=== PATIENT | male | born 1995 | race Caucasian/White ===

== ENCOUNTER 2017-10-29 11:54 | Inpatient (IN) | payer OTHER ==
[2017-10-29 13:11] VITALS: BMI 24.3
--- NOTE | 2017-10-29 13:15 | HP ---
COWS - Scale Resting Pulse: 1= OR 81-100 Sweatin= Chills/Flushing Restless Observation: 1= Difficult to Sit Still Pupil Size: 0= Normal to Room Light Bone or Joint Aches: 1= Mild Discomfort Runny Nose/ Eye Tearin= Runny Nose/Eyes Tremor Observation: 1= Tremor Sherrill, Not Seen Yawning Observation: 1= 1-2x During Session Anxiety or Irritability: 1=Feels Anxious/Irritable Goose Flesh Skin: 0=Smooth Skin Admission ROS [facility] - HPI Chief Complaint: I want help to stop, I want to be a better person, I love my family and I don't want to disappoint my family any more Allergies/Adverse Reactions: Allergies Allergy/AdvReac Type Severity Reaction Status Date / Time amoxicillin Allergy Intermediate Hives Verified 10/29/17 12:53 History of Present Illness: 22 yo gentleman here for detox from heroin and xanax. Denies drinking etoh, no cocaine (urine tox + cocaine - patient thinks cut into heroin). Noted methadone in urine tox - states from his brief stay in detox. States he tried detox a few days ago but only lasted a few hours ("I got scared but I have to do it") and in rehab last year but relapsed. No seizures, no overdoses. Exam Limitations: Clinical Condition - Ebola screening Have you traveled outside of the country in the last 21 days: No Have you had contact with anyone from an Ebola affected area: No Have you been sick,other than usual withdrawal symptoms: No Do you have a fever: No - Review of Systems Constitutional: Loss of Appetite, Malaise, Changes in sleep EENT: reports: Nose Congestion Respiratory: reports: No Symptoms reported Cardiac: reports: No Symptoms Reported GI: reports: Nausea, Poor Appetite, Abdominal cramping : reports: No Symptoms Reported Musculoskeletal: reports: Back Pain, Muscle Pain Integumentary: reports: Dryness Neuro: reports: Headache Endocrine: reports: No Symptoms Reported Hematology: reports: No Symptoms Reported Psychiatric: reports: Judgement Intact, Mood/Affect Appropiate, Orientated x3, Anxious Other Systems: Reviewed and Negative Patient History - Patient Medical History Hx Asthma: No Hx Chronic Obstructive Pulmonary Disease (COPD): No Hx Cancer: No Hx Cardiac Disorders: No Hx Congestive Heart Failure: No Hx Hypertension: No Hx Pacemaker: No Hx Seizures: No Hx Diabetes: No Hx Gastrointestinal Disorders: No Hx Liver Disease: No Hx Genitourinary Disorders: No Hx Sexually Transmitted Disorders: No Hx Renal Disease (ESRD): No Hx Thyroid Disease: No Hx Human Immunodeficiency Virus (HIV): No Hx Hepatitis C: No Hx Depression: Yes (anxiety) Hx Suicide Attempt: No Hx Bipolar Disorder: No Hx Schizophrenia: No - Patient Surgical History Past Surgical History: No Hx Neurologic Surgery: No Hx Cataract Extraction: No Hx Cardiac Surgery: No Hx Lung Surgery: No Hx Breast Surgery: No Hx Breast Biopsy: No Hx Abdominal Surgery: No Hx Appendectomy: No Hx Cholecystectomy: No Hx Genitourinary Surgery: No Hx Section: No Hx Orthopedic Surgery: No Anesthesia Reaction: No - PPD History Previous Implant?: Yes Documented Results: Negative w/o proof Implanted On Prior [facility] Admission?: Yes - Reproductive History Patient is a Female of Child Bearing Age (11 -55 yrs old): No (male) - Smoking Cessation Smoking history: Current every day smoker Have you smoked in the past 12 months: Yes Aproximately how many cigarettes per day: 40 Hx Chewing Tobacco Use: No Initiated information on smoking cessation: Yes 'Breaking Loose' booklet given: 10/29/17 (give n floor) - Substance & Tx. History Hx Alcohol Use: No Hx Substance Use: Yes Substance Use Type: Heroin, Marijuana, Tranquilizers Hx Substance Use Treatment: Yes (rehab) - Substances Abused Alprazolam (Xanax) Route: Oral Frequency: 3-6 times per week Amount used: 4MG Age of first use: 20 Date of Last Use: 10/27/17 Heroin Route: Inhalation Frequency: Daily Amount used: 15 BAGS Age of first use: 22 Date of Last Use: 10/29/17 Marijuana/Hashish Route: Smoking Frequency: Daily Amount used: $25 Age of first use: 14 Date of Last Use: 10/29/17 Family Disease History - Family Disease History Family Disease History: Other: Father (living - healthy), Mother (living, - healthy), Sister (one - living - healthy) Admission Physical Exam [facility] - Vital Signs Vital Signs: Vital Signs Period Temp Pulse Resp BP Sys/Osborne Pulse Ox Last 24 Hr 97.7 F 82 19 116/69 - Physical General Appearance: Yes: Nourished, Appropriately Dressed, Moderate Distress, Tremorous, Anxious HEENTM: Yes: EOMI, Hearing grossly Normal, Normocephalic, Normal Voice, Nasal Congestion Respiratory: Yes: Normal Breath Sounds, No Respiratory Distress Neck: Yes: No masses,lesions,Nodules, Supple Breast: Yes: Breast Exam Deferred Cardiology: Yes: Regular Rhythm, Regular Rate Abdominal: Yes: Non Tender, Flat Genitourinary: Yes: Hesitency Back: Yes: Normal Inspection Musculoskeletal: Yes: full range of Motion, Gait Steady Extremities: Yes: Normal Inspection, Normal Range of Motion, Non-Tender Neurological: Yes: Fully Oriented, Alert, Motor Strength 5/5, Normal Mood/Affect , Normal Response Integumentary: Yes: Normal Color, Warm Lymphatic: Yes: Within Normal Limits - Diagnostic (1) Opioid dependence with withdrawal Current Visit: Yes Status: Acute (2) Sedative, hypnotic or anxiolytic dependence with withdrawal, uncomplicated Current Visit: Yes Status: Chronic (3) Nicotine dependence unspecified, with withdrawal Current Visit: Yes Status: Chronic Qualifiers: Nicotine product type: cigarettes Qualified Code(s): F17.213 - Nicotine dependence, cigarettes, with withdrawal Cleared for Admission [facility] - Detox or Rehab [facility] Level of Care: Medically Managed Detox Regimen/Protocol: Methadone, Methadone/Valium
[2017-10-29] MEDS ORDERED: guaiFENesin/D-METHORPHAN HB 10 ML UNIT-DOSE CUPS PO PRN (13:21)
[2017-10-29] MEDS ORDERED: IBUPROFEN 400 MG TABLET (FP) PO PRN (13:21)
[2017-10-29] MEDS ORDERED: MENTHOL/PHENOL 1 EACH UD MM PRN (13:21)
[2017-10-29] MEDS ORDERED: diazePAM 5 MG TABLET PO PRN (13:21)
[2017-10-29] MEDS ORDERED: P-EPHED 60MG/TRIPROLIDI 2.5MG TABLET PO PRN (13:21)
[2017-10-29] MEDS ORDERED: ACETAMINOPHEN 325 MG TABLET (FP) PO PRN (13:21)
[2017-10-29] MEDS ORDERED: LOPERAMIDE HCL 2 MG CAPSULE PO PRN (13:21)
[2017-10-29] MEDS ORDERED: MAG HYDROX/AL HYDROX/SIMETH 30 ML UNIT-DOSE CUP PO PRN (13:21)
[2017-10-29] MEDS ORDERED: MAGNESIUM CITRATE 300 ML BOTTLE PO PRN (13:21)
[2017-10-29] MEDS ORDERED: MAGNESIUM HYDROX 2400MG/30ML ORAL SUSPENSION 30 ML CUP PO PRN (13:21)
[2017-10-29] MEDS ORDERED: hydrOXYzine PAMOATE 25 MG CAPSULE (FP) PO PRN (13:21)
[2017-10-29] MEDS ORDERED: NICOTINE 21 MG/24 HOURS TOPICAL PATCH TD SCH (13:30)
[2017-10-29] MEDS ORDERED: diazePAM 5 MG TABLET PO ONE (13:45)
[2017-10-29] MEDS ORDERED: METHADONE HCL 10 MG TABLET (FOR DETOX USE ONLY) PO ONE ×2 (13:45→23:00)
[2017-10-29] MEDS: NICOTINE POLACRILEX 4 MG GUM BUC PRN ×2 (14:24→19:52)
[2017-10-29] MEDS: diazePAM 5 MG TABLET PO SCH ×2 (14:31→22:10)
[2017-10-29] MEDS ORDERED: MELATONIN 5 MG TABLETS PO PRN (22:00)
[2017-10-29] MEDS ORDERED: THIAMINE HCL 100 MG TABLET (FP) PO SCH (22:00)
[2017-10-29 22:10] LABS: URINE APPEARANCE CLOUDY; URINE BILIRUBIN NEGATIVE (<2.0 mg/dL); URINE COLOR AMBER; URINE GLUCOSE (UA) NEGATIVE (NEGATIVE); URINE KETONE NEGATIVE (NEGATIVE); URINE LEUK ESTERASE NEGATIVE (NEGATIVE); URINE NITRITE NEGATIVE (NEGATIVE); URINE PROTEIN NEGATIVE (NEGATIVE); URINE UROBILINOGEN NEGATIVE mg/dL (0.2-1.0)
[2017-10-30] MEDS: diazePAM 5 MG TABLET PO SCH (05:19)
[2017-10-30 06:22] VITALS: BP 105/67; PULSE 50; TEMP 97
--- NOTE | 2017-10-30 06:37 | CONSULT ---
[facility] Psychiatric Consult - Data Date of interview: 10/30/17 Identifying data: Mr Carbajal is a 22 years old male seeking detox treatment for opioid, benzodiazepine and cannabis Substance Abuse History: Reports history of heroin, xanax and marijuana use. Refer to addiction counselor's summary for further information Medical History: Unremarkable. Smokes cigarettes 2 ppd Psychiatric Findings - Problem List ([place] 1, 2,3) (1) Opioid dependence with withdrawal Current Visit: Yes Status: Acute (2) Sedative, hypnotic or anxiolytic dependence with withdrawal, uncomplicated Current Visit: Yes Status: Acute (3) Cannabis dependence Current Visit: Yes Status: Acute (4) Nicotine dependence unspecified, with withdrawal Current Visit: Yes Status: Chronic Qualifiers: Nicotine product type: cigarettes Qualified Code(s): F17.213 - Nicotine dependence, cigarettes, with withdrawal
--- NOTE | 2017-10-30 08:50 | PN ---
S Progress Note Note: Vital Signs Temperature 97.0 F L 10/30/17 06:22 Pulse Rate 50 L 10/30/17 06:22 Respiratory Rate 18 10/30/17 06:22 Blood Pressure 105/67 10/30/17 06:22 O2 Sat by Pulse Oximetry (%) Patient left AMA, did not wait and walked off the unit.
--- NOTE | 2017-10-30 08:51 | DS ---
[facility] Detox Discharge Summary Admission Date: 10/29/17 Discharge Date: 10/30/17 - History Present History: Cannabis Dependence, Opioid Dependence, Sedative Dependence Additional Comments: Patient left AMA. If worsening symptoms are present patient to follow up with ED, urgent care or PMD. - Physical Exam Results Vital Signs: Vital Signs Temperature 97.0 F L 10/30/17 06:22 Pulse Rate 50 L 10/30/17 06:22 Respiratory Rate 18 10/30/17 06:22 Blood Pressure 105/67 10/30/17 06:22 O2 Sat by Pulse Oximetry (%) Pertinent Admission Physical Exam Findings: Vital Signs Temperature 97.0 F L 10/30/17 06:22 Pulse Rate 50 L 10/30/17 06:22 Respiratory Rate 18 10/30/17 06:22 Blood Pressure 105/67 10/30/17 06:22 O2 Sat by Pulse Oximetry (%) Laboratory Last Values Urine Color [place] 10/29/17 15:03 Urine Appearance Cloudy 10/29/17 15:03 Urine pH 6.0 (5.0-8.0) 10/29/17 15:03 Ur Specific [place] 1.021 (1.001-1.035) 10/29/17 15:03 Urine Protein Negative (NEGATIVE) 10/29/17 15:03 Urine Glucose (UA) Negative (NEGATIVE) 10/29/17 15:03 Urine Ketones Negative (NEGATIVE) 10/29/17 15:03 Urine Blood Negative (NEGATIVE) 10/29/17 15:03 Urine Nitrite Negative (NEGATIVE) 10/29/17 15:03 Urine Bilirubin Negative (<2.0 mg/dL) 10/29/17 15:03 Urine Urobilinogen Negative mg/dL (0.2-1.0) 10/29/17 15:03 Ur Leukocyte Esterase Negative (NEGATIVE) 10/29/17 15:03 - Medication Discharge Medications: Ambulatory Orders NK [No Known Home Medication] 10/29/17 - Diagnosis (1) Cannabis dependence Current Visit: Yes Status: Acute (2) Opioid dependence with withdrawal Current Visit: Yes Status: Acute (3) Sedative, hypnotic or anxiolytic dependence with withdrawal, uncomplicated Current Visit: Yes Status: Acute (4) Nicotine dependence unspecified, with withdrawal Current Visit: Yes Status: Chronic Qualifiers: Nicotine product type: cigarettes Qualified Code(s): F17.213 - Nicotine dependence, cigarettes, with withdrawal - AMA Did Patient Leave Against Medical Advice: Yes
--- NOTE | 2017-10-30 09:33 | PN ---
[facility] Progress Note Note: Patient was not present on the unit to be seen. According to nursing staff he walked off the floor
[2017-10-30] MEDS ORDERED: PRENATAL VITAMINS W/ FOLIC ACID TABLET (FP) PO SCH (10:00)
[2017-10-30] MEDS ORDERED: METHADONE HCL 10 MG TABLET (FOR DETOX USE ONLY) PO SCH (10:00)
[2017-10-30 10:13] LABS: HEMATOCRIT 40.9 % (35.4-49); HEMOGLOBIN 13.4 GM/dL (11.7-16.9); MCH 27.5 pg (25.7-33.7); MCHC 32.8 g/dl (32.0-35.9); MEAN CELL VOLUME 83.7 fl (80-96); MEAN PLT VOLUME 8.3 fl (7.5-11.1); PLATELET COUNT 219 K/MM3 (134-434); RBC 4.88 M/mm3 (4.00-5.60); WHITE BLOOD COUNT 7.5 K/mm3 (4.0-10.0)
[2017-10-30 10:28] LABS: CALCIUM 8.5 mg/dL (8.5-10.1); CHLORIDE 107 mmol/L (98-107); POTASSIUM 4.1 mmol/L (3.5-5.1); SODIUM 143 mmol/L (136-145)
[2017-10-30 10:35] LABS: ALBUMIN 3.5 g/dl (3.4-5.0); ALK PHOS 58 U/L (45-117); ANION GAP 6 (8-16); BILIRUBIN,TOTAL 0.3 mg/dL (0.2-1.0); BLOOD UREA NITROGEN 10 mg/dL (7-18); CO2 30 mmol/L (21-32); CREATININE 0.7 mg/dL (0.7-1.3); GLUCOSE,RANDOM 90 mg/dL (74-106); SGOT/AST 18 U/L (15-37); SGPT/ALT 23 U/L (12-78); TOT PROT 5.9 g/dl (6.4-8.2)
[2017-10-31] MEDS ORDERED: METHADONE HCL 5 MG TABLET (FOR DETOX USE ONLY) PO SCH (10:00)
[2017-10-31] MEDS ORDERED: diazePAM 5 MG TABLET PO SCH (10:00)
--- NOTE | 2017-10-31 20:15 | EKG ---
Test Reason : Blood Pressure : / mmHG Vent. Rate : 071 BPM Atrial Rate : 071 BPM P-R Int : 164 ms QRS Dur : 112 ms QT Int : 410 ms P-R-T Axes : 063 049 046 degrees QTc Int : 445 ms NORMAL SINUS RHYTHM NONSPECIFIC ST AND T WAVE ABNORMALITY ABNORMAL ECG NO PREVIOUS ECGS AVAILABLE Confirmed by MD ALVIN, DAVIDSON ([id number]) on 10/31/2017 8:15:09 PM Referred By: Rajat Gonzales Confirmed By:DAVIDSON ESQUIVEL MD
[2017-11-02] MEDS ORDERED: METHADONE HCL 10 MG TABLET (FOR DETOX USE ONLY) PO SCH (10:00)
[2017-11-02] MEDS ORDERED: diazePAM 5 MG TABLET PO SCH (10:00)
[2017-11-03] MEDS ORDERED: METHADONE HCL 5 MG TABLET (FOR DETOX USE ONLY) PO SCH (06:00)
== END 2017-10-30 08:32 | disposition left against medical advice (07) | DRG 770 ==
LOC: YASAS 11:54 → Y3N 12:56
PROVIDERS: ADMIT Surgery; ATTEND Surgery
PROC: HZ2ZZZZ Detoxification Services for Substance Abuse Treatment (ICD-10-PCS; principal; 2017-10-29)
DX: F11.23 Opioid dependence with withdrawal (principal); F13.230 Sedative, hypnotic or anxiolytic dependence with withdrawal, uncomplicated; F12.20 Cannabis dependence, uncomplicated; F17.213 Nicotine dependence, cigarettes, with withdrawal; F41.8 Other specified anxiety disorders
CPT/HCPCS: 36415; 80053; 81003; 85027; 86593; 93005; 93010